=== PATIENT | male | born 1935 | race Caucasian/White ===

== ENCOUNTER → 2021-02-06 | Outpatient (CLI) | payer OTHER ==
[~2021-02-06] MED LIST: ALBUTEROL1.25 MG/3 INH; ATORVASTATIN CA10 MG PO; AVODART0.5 MG PO; BACLOFEN10 MG PO; FLOMAX 0.4 MG0.4 MG PO; GABAPENTIN300 MG PO; LASIX20 MG PO; LEVOFLOXACIN500 MG PO; OMEPRAZOLE40 MG PO; RESTORIL 15 MG15 MG PO; SINGULAIR10 MG PO; TERAZOSIN HCL5 MG PO; ULTRAM50 MG PO
== END ==
LOC: HEART 5 11:24
DX: R05 Cough (principal)
CPT/HCPCS: 94010

== ENCOUNTER → 2021-04-16 | Day surgery (SDC) | payer OTHER ==
[~2021-04-16] MED LIST changes: +ALFUZOSIN HCL E10 MG PO; +ASPIRIN CHEWABL81 MG PO; +CARAFATE1 GM PO; +DOCUSATE SODIU100 M1 PO; +HYDROCODON-ACE1 EAC4 PO; +RESTORIL15 MG PO
== END | disposition home or self-care (01) ==
LOC: OR 09:15
PROVIDERS: Urology
PROC: 0TJB8ZZ Inspection of Bladder, Via Natural or Artificial Opening Endoscopic (ICD-10-PCS; principal; 2021-04-16 13:15)
DX: N40.1 Benign prostatic hyperplasia with lower urinary tract symptoms (principal); R39.11 Hesitancy of micturition; R39.14 Feeling of incomplete bladder emptying; R35.1 Nocturia; R39.198 Other difficulties with micturition; Z79.899 Other long term (current) drug therapy; Z96.0 Presence of urogenital implants; Z88.0 Allergy status to penicillin; Z79.1 Long term (current) use of non-steroidal anti-inflammatories (NSAID); Z79.82 Long term (current) use of aspirin; Z79.891 Long term (current) use of opiate analgesic; Z87.891 Personal history of nicotine dependence; Z20.822 Contact with and (suspected) exposure to COVID-19
CPT/HCPCS: J7040